=== PATIENT | female | born 1955 | race American Indian/Alaskan Native ===

== ENCOUNTER 2016-06-28 07:26 | Emergency (ER) | payer BC ==
[2016-06-28 07:37] VITALS: TEMP 98.8
[2016-06-28] MEDS ORDERED: Sodium Chloride 0.9% 1,000 ML IV ONE (07:52)
[2016-06-28] MEDS ORDERED: Sodium Chloride 0.9% 1,000 ML ONE (08:02)
[2016-06-28 08:26] LABS: BASO # 0.1 K/uL (0.0-0.2); BASO % 0.6 % (0.0-2.0); EOS % 0.4 % (0.0-4.0); HEMATOCRIT 39.9 % (34.0-47.0); LYMPH # 3.4 K/uL (1.0-4.3); LYMPH % 36.4 % (20.0-40.0); MEAN CELL VOLUME 87.5 fL (81.0-99.0); MEAN CORPUSCULAR HEMOGLOBIN 28.8 pg (27.0-31.0); MEAN CORPUSCULAR HGB CONC 32.9 g/dL (33.0-37.0); MEAN PLATELET VOLUME 7.2 fL (7.2-11.7); MONO # 1.1 K/uL (0.0-0.8); MONO % 12.2 % (0.0-10.0); RED CELL DISTRIBUTION WIDTH 14.2 % (11.5-14.5); WHITE BLOOD COUNT 9.4 K/uL (4.8-10.8)
[2016-06-28 08:55] LABS: CHLORIDE 105 mmol/L (98-107)
[2016-06-28 08:56] LABS: POTASSIUM 3.9 mmol/L (3.6-5.2); SODIUM 140 mmol/L (132-148)
[2016-06-28 08:58] LABS: ALB/GLOB RATIO 1.3 (1.0-2.1); AST/SGOT 22 U/L (14-36); BILIRUBIN,TOTAL 0.5 mg/dL (0.2-1.3); BLOOD UREA NITROGEN 11 mg/dL (7-17); CARBON DIOXIDE 24 mmol/L (22-30); GFR AFRICAN-AMERICAN > 60; TOTAL PROTEIN 7.4 g/dL (6.3-8.3)
--- NOTE | 2016-06-28 08:58 | C.PDOC ---
History Of Present Illness 60-year-old female, PMHx includes Hypertension and Diabetes, presents to the emergency department with complaints of nausea, w/ non-bloody/non-bilious vomiting and watery/non-bloody diarrhea that is associated with a cough and generalized weakness for the past three days. Patient notes associated decreased PO intake. No known fevers. Patient denies chills, chest pain, dizziness, or any other associated symptoms. No other complaints at this time. Time Seen by Provider: 06/28/16 07:46 Chief Complaint (Nursing): Flu-like Symptoms History Per: Patient History/Exam Limitations: no limitations Onset/Duration Of Symptoms: Days Current Symptoms Are (Timing): Still Present Past Medical History Reviewed: Historical Data, Nursing Documentation, Vital Signs Vital Signs: Last Vital Signs Temp 98.8 F 06/28/16 09:13 Pulse 74 06/28/16 09:13 Resp 20 06/28/16 09:13 BP 128/77 06/28/16 09:13 Pulse Ox 99 06/28/16 09:13 - Medical History PMH: Diabetes (Non-compliant with medication), HTN, Kidney Stones Denies: Chronic Kidney Disease - [facility] Procedures FLUOROSCOPY OF LEFT HEART USING LOW OSMOLAR CONTRAST (02/02/15) FLUOROSCOPY OF SINGLE CORONARY ARTERY USING L OSM CONTRAST (02/02/15) INSERT INDWELLING CATH (09/12/12) MEASURE OF CARDIAC SAMPL & PRESSURE, L HEART, PERC APPROACH (02/02/15) Family History: States: Unknown Family Hx - Social History Hx Tobacco Use: No Hx Alcohol Use: No Hx Substance Use: No - Immunization History Hx Tetanus Toxoid Vaccination: No Hx Influenza Vaccination: No Hx Pneumococcal Vaccination: No Review Of Systems Except As Marked, All Systems Reviewed And Found Negative. Constitutional: Negative for: Fever, Chills Cardiovascular: Negative for: Chest Pain, Palpitations Respiratory: Positive for: Cough. Negative for: Shortness of Breath, Sputum Gastrointestinal: Positive for: Nausea, Vomiting, Diarrhea Musculoskeletal: Positive for: Back Pain Skin: Negative for: Rash Physical Exam - Physical Exam Appears: Non-toxic, No Acute Distress Skin: Warm, Dry, No Rash Head: Atraumatic, Normacephalic Eye(s): bilateral: Normal Inspection, EOMI Nose: Normal Oral Mucosa: Moist Lips: Normal Appearing Neck: Normal ROM Cardiovascular: Rhythm Regular Respiratory: Normal Breath Sounds, No Accessory Muscle Use Gastrointestinal/Abdominal: Soft, No Tenderness Extremity: Normal ROM Neurological/Psych: Oriented x3, Normal Speech ED Course And Treatment - Laboratory Results Result Diagrams: 06/28/16 08:22 06/28/16 08:44 Lab Interpretation: No Acute Changes O2 Sat by Pulse Oximetry: 96 (room air) Pulse Ox Interpretation: Normal Medical Decision Making Medical Decision Making: Impression Generalized weakness, nausea/vomiting. Plan: * CMP * CBC * IVF, Toradol, Zofran * Influenza AB * Urinalysis * Reassess and Disposition progress: Labs reviewed and unremarkable. Patient remained afebrile and in no acute distress. Upon reevaluation patient reports feeling better. She was able to tolerate po. Advise follow up with PMD. Disposition - Disposition Disposition: HOME/ ROUTINE Disposition Time: 10:15 Condition: IMPROVED Additional Instructions: Give fluids to prevent dehydration. Take Zofran as prescribed. Try low-fat diet with increase in fluids such as sport drink, gelatin. Try soup, rice, bread, crackers, cereal, bananas to help with diarrhea. Avoid high sugar foods or drinks (soda and juice), fatty foods. Prescriptions: Pantoprazole Sodium [Protonix] 20 mg PO DAILY #20 ect Ondansetron ODT [Zofran ODT] 1 odt PO BID PRN #6 odt PRN Reason: Nausea/Vomiting Instructions: Gastroenteritis (DC) - POA Present On Arrival: None - Clinical Impression Clinical Impression: Influenza-like illness, Gastroenteritis - Scribe Statement The provider has reviewed the documentation as recorded by the Raghu Shaffer All medical record entries made by the Raghu were at my direction and personally dictated by me. I have reviewed the chart and agree that the record accurately reflects my personal performance of the history, physical exam, medical decision making, and the department course for this patient. I have also personally directed, reviewed, and agree with the discharge instructions and disposition.
[2016-06-28 08:59] LABS: ALKALINE PHOSPHATASE 92 U/L (38-126); ALT/SGPT 25 U/L (9-52); CALCIUM 8.6 mg/dl (8.6-10.4); GLUCOSE,RANDOM 95 mg/dL (65-105)
[2016-06-28 09:13] VITALS: BP 128/77; PULSE 74; RESP 20
[2016-06-28 09:46] LABS: RBC URINE 2 /hpf (0-3); URINE BACTERIA RARE (<OCC); URINE BILIRUBIN NEGATIVE (NEGATIVE); URINE BLOOD NEGATIVE (NEGATIVE); URINE COLOR Yellow (YELLOW); URINE GLUCOSE (UA) NORMAL (Normal); URINE KETONE 1+ mg/dL (NEGATIVE); URINE LEUKOCYTE ESTERASE NEG Leu/uL (Negative); URINE PROTEIN NEGATIVE (NEGATIVE); WBC URINE 1 /hpf (0-5)
[2016-06-28 13:11] VITALS: O2SAT 96
== END 2016-06-28 10:30 | disposition home or self-care (01) ==
LOC: C.ER 07:26
DX: J11.2 Influenza due to unidentified influenza virus with gastrointestinal manifestations (principal)
CPT/HCPCS: 80053; 81001; 85025; 87804; 96361; 96374; 96375; 99284; J1885; J2405; J7040

== ENCOUNTER 2016-08-28 02:06 | Emergency (ER) | payer BC ==
[2016-08-28] MEDS ORDERED: Sodium Chloride 0.9% 1,000 ML IV ONE (02:26)
--- NOTE | 2016-08-28 02:26 | C.PDOC ---
Time Seen by Provider: 08/28/16 02:25 Chief Complaint (Nursing): Back Pain Past Medical History Vital Signs: Last Vital Signs Temp 97.6 F 08/28/16 02:14 Pulse 88 08/28/16 02:14 Resp 22 08/28/16 02:14 BP 136/47 L 08/28/16 02:14 Pulse Ox 100 08/28/16 02:14 - Medical History PMH: Diabetes (Non-compliant with medication), HTN, Kidney Stones Denies: Chronic Kidney Disease - [facility] Procedures FLUOROSCOPY OF LEFT HEART USING LOW OSMOLAR CONTRAST (02/02/15) FLUOROSCOPY OF SINGLE CORONARY ARTERY USING L OSM CONTRAST (02/02/15) INSERT INDWELLING CATH (09/12/12) MEASURE OF CARDIAC SAMPL & PRESSURE, L HEART, PERC APPROACH (02/02/15) Family History: States: Unknown Family Hx - Social History Hx Tobacco Use: No Hx Alcohol Use: No Hx Substance Use: No - Immunization History Hx Tetanus Toxoid Vaccination: No Hx Influenza Vaccination: No Hx Pneumococcal Vaccination: No ED Course And Treatment O2 Sat by Pulse Oximetry: 100 Disposition Counseled Patient/Family Regarding: Studies Performed, Diagnosis - Disposition Disposition Time: 02:26
[2016-08-28] MEDS ORDERED: Morphine 4 MG/ML VIAL IV STA (02:29)
--- NOTE | 2016-08-28 02:33 | C.PDOC ---
History Of Present Illness Pt presents with llq pain , which started a few hours ago. Sharp stabbing pain , occasionally radiating to the back. Has a history of kidney stones. Some nausea, no vomiting Time Seen by Provider: 08/28/16 02:25 Chief Complaint (Nursing): Back Pain History Per: Patient History/Exam Limitations: no limitations Onset/Duration Of Symptoms: Hrs Current Symptoms Are (Timing): Still Present Context: Other Severity: Severe Pain Scale Rating Of: 7 Location Of Pain/Discomfort: LLQ Radiation Of Pain To:: Back Quality Of Discomfort: Sharp, Cramping, Stabbing Associated Symptoms: denies: Fever, Chills Exacerbating Factors: denies: Cough Alleviating Factors: None Last Bowel Movement: Today Recent travel outside of the [place]: No Additional History Per: Patient Abnormal Vaginal Bleeding: No Past Medical History Reviewed: Historical Data, Nursing Documentation, Vital Signs Vital Signs: Last Vital Signs Temp 97.6 F 08/28/16 02:14 Pulse 88 08/28/16 02:14 Resp 22 08/28/16 02:14 BP 136/47 L 08/28/16 02:14 Pulse Ox 100 08/28/16 02:33 - Medical History PMH: Diabetes (Non-compliant with medication), HTN, Kidney Stones Denies: Chronic Kidney Disease - [facility] Procedures FLUOROSCOPY OF LEFT HEART USING LOW OSMOLAR CONTRAST (02/02/15) FLUOROSCOPY OF SINGLE CORONARY ARTERY USING L OSM CONTRAST (02/02/15) INSERT INDWELLING CATH (09/12/12) MEASURE OF CARDIAC SAMPL & PRESSURE, L HEART, PERC APPROACH (02/02/15) Family History: States: No Known Family Hx - Social History Hx Tobacco Use: No Hx Alcohol Use: No Hx Substance Use: No - Immunization History Hx Tetanus Toxoid Vaccination: No Hx Influenza Vaccination: No Hx Pneumococcal Vaccination: No Review Of Systems Constitutional: Negative for: Fever, Chills Eyes: Negative for: Vision Change ENT: Negative for: Throat Pain Cardiovascular: Negative for: Chest Pain Respiratory: Negative for: Shortness of Breath Gastrointestinal: Positive for: Abdominal Pain. Negative for: Nausea Genitourinary: Negative for: Dysuria Musculoskeletal: Positive for: Back Pain Skin: Negative for: Rash, Lesions, Jaundice, Bruising Neurological: Negative for: Weakness Psych: Negative for: Anxiety Physical Exam - Physical Exam Appears: Non-toxic Skin: Warm, Dry Head: Normacephalic Oral Mucosa: Moist Neck: Supple Chest: Symmetrical Cardiovascular: Rhythm Regular Respiratory: No Rales, No Rhonchi, No Wheezing Gastrointestinal/Abdominal: Soft, Tenderness (llq), Distention, No Guarding, No Rebound Back: CVA Tenderness (left) Extremity: Normal ROM Extremity: Bilateral: Normal Color And Temperature Neurological/Psych: Oriented x3, Normal Speech, Normal Cognition Gait: Steady ED Course And Treatment - Laboratory Results Result Diagrams: 08/28/16 02:36 08/28/16 02:36 O2 Sat by Pulse Oximetry: 100 Pulse Ox Interpretation: Normal Reevaluation Time: 06:30 Reassessment Condition: Improved Disposition Counseled Patient/Family Regarding: Studies Performed, Diagnosis, Need For Followup, Rx Given - Disposition Referrals: Naila Tom MD [Staff Provider] - Disposition: HOME/ ROUTINE Disposition Time: 02:30 Condition: FAIR Prescriptions: traMADol [Ultram] 50 mg PO TID PRN #12 tab PRN Reason: Pain, Severe (8-10) Instructions: Renal Colic (ED) - Clinical Impression Clinical Impression: Renal colic on left side
[2016-08-28] MEDS ORDERED: Sodium Chloride 0.9% 1,000 ML ONE (02:35)
[2016-08-28 02:38] LABS: BASO # 0.2 K/uL (0.0-0.2); BASO % 1.7 % (0.0-2.0); EOS # 0.1 K/uL (0.0-0.7); HEMATOCRIT 37.7 % (34.0-47.0); LYMPH # 8.5 K/uL (1.0-4.3); LYMPH % 62.6 % (20.0-40.0); MEAN CORPUSCULAR HEMOGLOBIN 28.7 pg (27.0-31.0); MEAN CORPUSCULAR HGB CONC 32.3 g/dL (33.0-37.0); MEAN PLATELET VOLUME 7.3 fL (7.2-11.7); MONO # 1.3 K/uL (0.0-0.8); MONO % 9.7 % (0.0-10.0); RED CELL DISTRIBUTION WIDTH 14.6 % (11.5-14.5); WHITE BLOOD COUNT 13.5 K/uL (4.8-10.8)
[2016-08-28 02:47] LABS: CHLORIDE 102 mmol/L (98-107); POTASSIUM 3.6 mmol/L (3.6-5.2); SODIUM 141 mmol/L (132-148)
[2016-08-28 02:49] LABS: ALB/GLOB RATIO 1.5 (1.0-2.1); AST/SGOT 22 U/L (14-36); BILIRUBIN,TOTAL 0.5 mg/dL (0.2-1.3); CARBON DIOXIDE 23 mmol/L (22-30); GFR AFRICAN-AMERICAN > 60; TOTAL PROTEIN 7.6 g/dL (6.3-8.3)
[2016-08-28 02:50] LABS: ALKALINE PHOSPHATASE 102 U/L (38-126); ALT/SGPT 16 U/L (9-52); BLOOD UREA NITROGEN 13 mg/dL (7-17); CALCIUM 9.3 mg/dl (8.6-10.4); GLUCOSE,RANDOM 109 mg/dL (65-105)
[2016-08-28 04:24] LABS: RBC URINE 8 /hpf (0-3); URINE BACTERIA RARE (<OCC); URINE BILIRUBIN NEGATIVE (NEGATIVE); URINE BLOOD 1+ (NEGATIVE); URINE COLOR Yellow (YELLOW); URINE GLUCOSE (UA) NORMAL (Normal); URINE KETONE NEGATIVE (NEGATIVE); URINE LEUKOCYTE ESTERASE NEG Leu/uL (Negative); URINE PROTEIN NEGATIVE (NEGATIVE); URINE UROBILINOGEN NORMAL mg/dL (0.2-1.0); WBC URINE 2 /hpf (0-5)
[2016-08-28] MEDS ORDERED: Iodixanol 320 MG/ML 100 ML BOTTLE IV ONE (04:51)
[2016-08-28 07:02] VITALS: BP 134/60; PULSE 76; RESP 20; TEMP 98; O2SAT 98
--- NOTE | 2016-08-28 11:59 | CT ---
PROCEDURE: CT Abdomen and Pelvis with contrast HISTORY: left flank pain COMPARISON: CT of the abdomen and pelvis without oral or IV contrast performed 08/26/15 TECHNIQUE: Contrast dose: 100 mL Visipaque Radiation dose: Total exam DLP = 1198.33 mGy-cm. This CT exam was performed using one or more of the following dose reduction techniques: Automated exposure control, adjustment of the mA and/or kV according to patient size, and/or use of iterative reconstruction technique. FINDINGS: LOWER THORAX: Bibasilar atelectasis. No visible pleural effusion or pneumothorax. Small hiatal hernia. LIVER: Too small to characterize 5 mm hypodensity at the hepatic dome; statistically likely cyst or hemangioma. Hypoattenuation of the liver compatible with hepatic steatosis. GALLBLADDER AND BILE DUCTS: Unremarkable. PANCREAS: Unremarkable. SPLEEN: Unremarkable. ADRENALS: Unremarkable. KIDNEYS AND URETERS: The kidneys enhance symmetrically. 2 mm left ureteral calculus (series 3, image 91), with mild hydroureter/ hydronephrosis. Mild left perinephric fluid. The right kidney appears unremarkable without hydronephrosis or obstructing calculus. VASCULATURE: Atherosclerotic calcifications. No aortic aneurysm. BOWEL: Postsurgical gastric changes. Lack of oral contrast limits evaluation for bowel pathology. Bowel loops appear within normal limits of caliber without evidence of obstruction. APPENDIX: No secondary signs of acute appendicitis. PERITONEUM: No significant free fluid. No definite free air. LYMPH NODES: No bulky adenopathy identified. BLADDER: 2 mm punctate calculus appears within the urinary bladder, likely related to recently passed stone. REPRODUCTIVE: Uterus is absent consistent with hysterectomy. BONES: Degenerative changes. OTHER FINDINGS: Small fat containing umbilical hernia. IMPRESSION: 2 mm left ureteral calculus, with mild hydroureter/ hydronephrosis. Mild left perinephric fluid. 2 mm punctate calculus appears within the urinary bladder, likely related to recently passed stone. Too small to characterize 5 mm hypodensity at the hepatic dome; statistically likely cyst or hemangioma. Hepatic steatosis. Additional incidental findings as above. Preliminary impression was provided by virtual radi[employer].
== END 2016-08-28 07:00 | disposition home or self-care (01) ==
LOC: C.ER 02:06
DX: N13.2 Hydronephrosis with renal and ureteral calculous obstruction (principal)
CPT/HCPCS: 74177; 80053; 81001; 83690; 85025; 96374; 96375; 99283; J1885; J2270; J2405; J7040; Q9967

== ENCOUNTER 2016-11-03 06:04 | Emergency (ER) | payer BC ==
--- NOTE | 2016-11-03 06:22 | C.PDOC ---
History Of Present Illness 60 year old female with complaints of sore throat, nasal congestion, bilateral ear fullness and clogged sensation for 2 days. She also reports malaise, generalized headache, and subjective fever. She tried OTC cold medicine and lozenges with little relief. She reports painful swallowing today. Time Seen by Provider: 11/03/16 06:20 Chief Complaint (Nursing): ENT Problem History Per: Patient History/Exam Limitations: no limitations Onset/Duration Of Symptoms: Days (2) Current Symptoms Are (Timing): Still Present Location Of Pain: Throat, Sinus/es, Headache Sick Contacts (Context): None Associated Symptoms: Fever, Sore Throat, Nasal Congestion Ear Symptoms: Bilateral: Ear Fullness Past Medical History Reviewed: Historical Data, Nursing Documentation, Vital Signs Vital Signs: Last Vital Signs Temp Pulse 87 11/03/16 06:12 Resp 18 11/03/16 06:12 BP 131/67 11/03/16 06:12 Pulse Ox 97 11/03/16 06:28 - Medical History PMH: Diabetes (Non-compliant with medication), HTN, Kidney Stones - [facility] Procedures FLUOROSCOPY OF LEFT HEART USING LOW OSMOLAR CONTRAST (02/02/15) FLUOROSCOPY OF SINGLE CORONARY ARTERY USING L OSM CONTRAST (02/02/15) INSERT INDWELLING CATH (09/12/12) MEASURE OF CARDIAC SAMPL & PRESSURE, L HEART, PERC APPROACH (02/02/15) Family History: States: Unknown Family Hx - Social History Hx Tobacco Use: No Hx Alcohol Use: No Hx Substance Use: No - Immunization History Hx Tetanus Toxoid Vaccination: No Hx Influenza Vaccination: No Hx Pneumococcal Vaccination: No Review Of Systems Constitutional: Positive for: Fever, Malaise Eyes: Negative for: Pain, Vision Change ENT: Positive for: Ear Pain, Nose Congestion Cardiovascular: Negative for: Palpitations Respiratory: Negative for: Cough, Shortness of Breath Gastrointestinal: Negative for: Vomiting, Abdominal Pain, Diarrhea Genitourinary: Negative for: Dysuria Skin: Negative for: Rash Neurological: Positive for: Headache. Negative for: Weakness, Numbness, Dizziness Physical Exam - Physical Exam Appears: Non-toxic, No Acute Distress Skin: Warm, Dry, No Diaphoretic, No Pale, No Rash Head: Atraumatic, Normacephalic Eye(s): bilateral: Normal Inspection, PERRL, EOMI Ear(s): Bilateral: Normal (no erythema) Nose: No Discharge, Other (nasal congestion) Oral Mucosa: Moist Tongue: Normal Appearing Lips: Normal Appearing Teeth: Normal Dentition Throat: Erythema (mild), No Exudate, No Drooling, No Mass Neck: Normal ROM Lymphatic: Normal Exam, No Adenopathy Chest: Symmetrical Cardiovascular: Rhythm Regular, No Murmur Respiratory: Normal Breath Sounds, No Stridor, No Wheezing Extremity: Bilateral: Atraumatic, Normal ROM Neurological/Psych: Oriented x3, Normal Speech Gait: Steady ED Course And Treatment O2 Sat by Pulse Oximetry: 97 Medical Decision Making Medical Decision Makin60 year old female with complaints of sore throat, nasal congestion, bilateral ear fullness and clogged sensation. No signs of acute OM or strep on exam. Symptoms likely related to sinus infection. Patient states she has tried OTC medications without relief. Will treat with Amoxicillin. Recommend decongestant and will discharge with Rx. Instruct to follow up with PCP. Disposition Counseled Patient/Family Regarding: Diagnosis, Need For Followup, Rx Given - Disposition Disposition: HOME/ ROUTINE Disposition Time: 06:30 Condition: STABLE Additional Instructions: Take Tylenol or Motrin alternating every 4-6 hours for Fever 100.4F or higher. Rest and drink plenty of fluids. May use cool mist humidifier or vaporizer in room. Try taking over the counter antihistamine (Claritin, Yanna, Zyrtec), Decongestant or Cough medicine (Mucinex) as needed every 6-8 hours. Try lozenges to help soothe throat pain. Follow up with your primary medical doctor or clinic in 1 week for further evaluation. Prescriptions: Amoxicillin [Amoxil 500 mg Cap] 2 tab PO BID #28 cap D-Methorphan/PE/Acetaminophen [Mucinex Fast-Max Cold-Sinus Cp] 1 each PO Q8 #24 capsule Instructions: Sinusitis (ED) Forms: [employer] (Austrian) - POA Present On Arrival: None - Clinical Impression Clinical Impression: Sinusitis - PA / [employer] / Resident Statement MD/DO has reviewed & agrees with the documentation as recorded.
[2016-11-03] MEDS ORDERED: Amoxicillin-Clav 500-125 mg Tab PO ONE (06:36)
[2016-11-03 06:42] VITALS: TEMP 98
[2016-11-03 06:52] VITALS: BP 129/67; PULSE 86; RESP 16; O2SAT 100
== END 2016-11-03 06:51 | disposition home or self-care (01) ==
LOC: C.ER 06:04
DX: J32.9 Chronic sinusitis, unspecified (principal)

== ENCOUNTER 2017-07-20 17:54 | Observation (INO) | payer BC ==
[2017-07-20 18:51] LABS: BASO # 0.1 K/uL (0.0-0.2); BASO % 0.8 % (0.0-2.0); EOS # 0.1 K/uL (0.0-0.7); HEMOGLOBIN 12.6 g/dL (11.0-16.0); LYMPH # 4.8 K/uL (1.0-4.3); LYMPH % 56.8 % (20.0-40.0); MEAN CELL VOLUME 88.1 fL (81.0-99.0); MEAN CORPUSCULAR HEMOGLOBIN 29.5 pg (27.0-31.0); MEAN CORPUSCULAR HGB CONC 33.5 g/dL (33.0-37.0); MEAN PLATELET VOLUME 7.4 fL (7.2-11.7); MONO # 0.8 K/uL (0.0-0.8); MONO % 9.8 % (0.0-10.0); NEUT # 2.7 K/uL (1.8-7.0); NEUT % 31.6 % (50.0-75.0); NRBC % 0.1 % (0.0-2.0); RBC 4.26 Mil/uL (3.80-5.20); RED CELL DISTRIBUTION WIDTH 14.3 % (11.5-14.5); WHITE BLOOD COUNT 8.5 K/uL (4.8-10.8)
[2017-07-20 19:06] LABS: CALCIUM 9.3 mg/dl (8.6-10.4); GFR AFRICAN-AMERICAN > 60; GFR NON-AFRICAN AMERICAN > 60
[2017-07-20 19:20] LABS: ALB/GLOB RATIO 1.1 (1.0-2.1); ALBUMIN 4.3 g/dL (3.5-5.0); ALT/SGPT < 6 U/L (9-52); AST/SGOT 36 U/L (14-36); BLOOD UREA NITROGEN 15 mg/dL (7-17)
--- NOTE | 2017-07-20 21:06 | C.PDOC ---
History Of Present Illness 61yo female, with history of hypertension, diabetes and high cholesterol, presents to the ED with complaints of an episode of midsternal chest pain today. She states the pain subsided when she sat down to rest. Patient denies any associated fever, chills, cough, shortness of breath. She also denies any recent travels or known sick contacts. Time Seen by Provider: 07/20/17 18:20 Chief Complaint (Nursing): Chest Pain History Per: Patient History/Exam Limitations: no limitations Onset/Duration Of Symptoms: Days Current Symptoms Are (Timing): Gone Quality: "Pain" Past Medical History Reviewed: Historical Data, Nursing Documentation, Vital Signs Vital Signs: Last Vital Signs Temp 97.9 F 07/20/17 22:07 Pulse 64 07/20/17 22:07 Resp 20 07/20/17 22:07 BP 128/66 07/20/17 22:07 Pulse Ox 100 07/20/17 22:07 - Medical History PMH: Diabetes (Non-compliant with medication), HTN, Hypercholesterolemia, Kidney Stones Denies: Chronic Kidney Disease Surgical History: No Surg Hx - [facility] Procedures FLUOROSCOPY OF LEFT HEART USING LOW OSMOLAR CONTRAST (02/02/15) FLUOROSCOPY OF SINGLE CORONARY ARTERY USING L OSM CONTRAST (02/02/15) INSERT INDWELLING CATH (09/12/12) MEASURE OF CARDIAC SAMPL & PRESSURE, L HEART, PERC APPROACH (02/02/15) Family History: States: Unknown Family Hx - Social History Hx Tobacco Use: No Hx Alcohol Use: No Hx Substance Use: No - Immunization History Hx Tetanus Toxoid Vaccination: No Hx Influenza Vaccination: No Hx Pneumococcal Vaccination: No Review Of Systems Except As Marked, All Systems Reviewed And Found Negative. Constitutional: Negative for: Fever, Chills Cardiovascular: Positive for: Chest Pain Respiratory: Negative for: Cough, Shortness of Breath Physical Exam - Physical Exam Appears: Non-toxic, No Acute Distress Skin: Normal Color, Warm, Dry Head: Atraumatic, Normacephalic Eye(s): bilateral: Normal Inspection, PERRL Neck: Normal ROM, Supple Chest: Symmetrical, No Tenderness Cardiovascular: Rhythm Regular Respiratory: Normal Breath Sounds, No Wheezing Gastrointestinal/Abdominal: Normal Exam, Soft, No Tenderness Back: Normal Inspection Extremity: Normal ROM, No Deformity Neurological/Psych: Oriented x3 ED Course And Treatment - Laboratory Results Result Diagrams: 07/20/17 18:46 07/20/17 18:46 ECG: Interpreted By Me, Viewed By Me ECG Rhythm: Sinus Bradycardia Rate From EC O2 Sat by Pulse Oximetry: 99 (RA) Pulse Ox Interpretation: Normal Medical Decision Making Medical Decision Making: Impression: Chest pain Plan: -- Labs -- EKG -- CXR -- Aspirin 325 mg PO Time: [address] Tom and patient to be admitted under her service. Disposition - Disposition Disposition: HOSPITALIZED Disposition Time: 19:15 Condition: STABLE - Clinical Impression Clinical Impression: Chest pain - Scribe Statement The provider has reviewed the documentation as recorded by the Scribe (Whitney Ross) Provider Attestation: All medical record entries made by the Scribe were at my direction and personally dictated by me. I have reviewed the chart and agree that the record accurately reflects my personal performance of the history, physical exam, medical decision making, and the department course for this patient. I have also personally directed, reviewed, and agree with the discharge instructions and disposition.
[2017-07-21 07:02] LABS: BASO % 0.5 % (0.0-2.0); EOS # 0.1 K/uL (0.0-0.7); EOS % 1.4 % (0.0-4.0); HEMOGLOBIN 12.2 g/dL (11.0-16.0); LYMPH # 4.1 K/uL (1.0-4.3); LYMPH % 60.7 % (20.0-40.0); MEAN CELL VOLUME 88.2 fL (81.0-99.0); MEAN CORPUSCULAR HEMOGLOBIN 29.1 pg (27.0-31.0); MEAN PLATELET VOLUME 7.3 fL (7.2-11.7); MONO # 0.7 K/uL (0.0-0.8); MONO % 10.2 % (0.0-10.0); NEUT # 1.8 K/uL (1.8-7.0); NEUT % 27.2 % (50.0-75.0); NRBC % 0.1 % (0.0-2.0); RBC 4.19 Mil/uL (3.80-5.20); RED CELL DISTRIBUTION WIDTH 14.2 % (11.5-14.5); WHITE BLOOD COUNT 6.8 K/uL (4.8-10.8)
[2017-07-21] MEDS: (Novolog) Insulin Aspart, Recombinant 100 u/ml 10 ml vial SC SCH ×2 (07:39→11:27)
--- NOTE | 2017-07-21 08:22 | RAD ---
HISTORY: chest pain COMPARISON: Chest x-ray 02/01/2015 TECHNIQUE: Chest one view . FINDINGS: LUNGS: No focal consolidation is seen. PLEURA: No pleural effusion is identified. CARDIOVASCULAR: Heart size is within normal limits. OSSEOUS STRUCTURES: Visualized osseous structures are unremarkable. VISUALIZED UPPER ABDOMEN: Unremarkable. OTHER FINDINGS: None. IMPRESSION: No acute cardiopulmonary process seen.
[2017-07-21 08:33] VITALS: TEMP 97.5; O2SAT 98
[2017-07-21 09:03] LABS: ALB/GLOB RATIO 1.2 (1.0-2.1); ALBUMIN 3.7 g/dL (3.5-5.0); ALT/SGPT 14 U/L (9-52); AST/SGOT 32 U/L (14-36); BLOOD UREA NITROGEN 14 mg/dL (7-17); CALCIUM 9.2 mg/dl (8.6-10.4); GFR AFRICAN-AMERICAN > 60; GFR NON-AFRICAN AMERICAN > 60
[2017-07-21 09:15] LABS: CK-MB < 0.22 ng/mL (0.0-3.38)
[2017-07-21 09:40] VITALS: BP 132/70; RESP 16
[2017-07-21] MEDS ORDERED: Enoxaparin 40 mg Syringe SC SCH (10:00)
--- NOTE | 2017-07-21 10:24 | CP.PCM.HP ---
History of Present Illness - History of Present Illness History of Present Illness: pt came in for retrosternal chest pain resolved with rest Present on Admission - Present on Admission Any Indicators Present on Admission: No Review of Systems - Review of Systems Systems not reviewed;Unavailable: Acuity of Condition - Constitutional Constitutional: As Per HPI - EENT Eyes: As Per HPI Ears: As Per HPI - Breasts Breasts: As Per HPI - Cardiovascular Cardiovascular: As Per HPI - Respiratory Respiratory: As Per HPI - Gastrointestinal Gastrointestinal: As Per HPI - Genitourinary Genitourinary: As Per HPI - Reproductive: Female Reproductive:Female: As Per HPI - Menstruation Menstruation: As Per HPI - Musculoskeletal Musculoskeletal: As Per HPI - Integumentary Integumentary: As Per HPI - Neurological Neurological: As Per HPI - Psychiatric Psychiatric: As Per HPI - Endocrine Endocrine: As Per HPI - Hematologic/Lymphatic Hematologic: As Per HPI Past Patient History - Infectious Disease Hx of Infectious Diseases: None - Past Medical History & Family History Past Medical History?: Yes - Past Social History Smoking Status: Never Smoked - CARDIAC Hx Hypercholesterolemia: Yes Hx Hypertension: Yes - PULMONARY Hx Respiratory Disorders: No - NEUROLOGICAL Hx Neurological Disorder: No - HEENT Hx HEENT Problems: Yes Other/Comment: uses eyeglasses - RENAL Hx Chronic Kidney Disease: No Hx Kidney Stones: Yes - ENDOCRINE/METABOLIC Hx Diabetes Mellitus Type 2: Yes - HEMATOLOGICAL/ONCOLOGICAL Hx Blood Disorders: No - INTEGUMENTARY Hx Dermatological Problems: No - MUSCULOSKELETAL/RHEUMATOLOGICAL Hx Musculoskeletal Disorders: No Hx Back Pain: Yes Hx Falls: No Other/Comment: "PROBLEM WITH LEFT HIP" - GASTROINTESTINAL Hx Gastroesophageal Reflux: Yes Other/Comment: s/p beritric surgery 2 ys ago - GENITOURINARY/GYNECOLOGICAL Hx Genitourinary Disorders: No - PSYCHIATRIC Hx Substance Use: No - SURGICAL HISTORY Hx Cardiac Catheterization: Yes Hx Hysterectomy: Yes Hx Orthopedic Surgery: Yes (LEFT KNEE) Other/Comment: HYSTERECTOMY. GASTRIC SLEEVE 2012 - ANESTHESIA Hx Anesthesia: Yes Hx Anesthesia Reactions: No Meds Allergies/Adverse Reactions: Allergies Allergy/AdvReac Type Severity Reaction Status Date / Time No Known Allergies Allergy Verified 07/20/17 18:11 Physical Exam - Constitutional Appears: Well - Head Exam Head Exam: ATRAUMATIC - Eye Exam Eye Exam: Normal appearance Pupil Exam: PERRL - ENT Exam ENT Exam: Mucous Membranes Moist - Neck Exam Neck exam: Positive for: Full Rom - Respiratory Exam Respiratory Exam: Clear to Auscultation Bilateral - Cardiovascular Exam Cardiovascular Exam: REGULAR RHYTHM - GI/Abdominal Exam GI & Abdominal Exam: Normal Bowel Sounds - Rectal Exam Rectal Exam: NORMAL INSPECTION - Exam Exam: NORMAL INSPECTION - Extremities Exam Extremities exam: Positive for: normal inspection - Back Exam Back exam: NORMAL INSPECTION - Neurological Exam Neurological exam: Oriented x3 - Psychiatric Exam Psychiatric exam: Normal Mood - Skin Skin Exam: Normal Color Results - Vital Signs Recent Vital Signs: Last Vital Signs Temp 97.5 F L 07/21/17 07:00 Pulse 72 07/21/17 09:38 Resp 16 07/21/17 09:38 BP 132/70 07/21/17 09:38 Pulse Ox 98 07/21/17 07:00 - Labs Result Diagrams: 07/21/17 06:47 07/21/17 06:47 Labs: Laboratory Results - last 24 hr 07/20/17 07/20/17 07/21/17 18:46 18:46 06:14 WBC 8.5 RBC 4.26 Hgb 12.6 Hct 37.5 MCV 88.1 MCH 29.5 MCHC 33.5 RDW 14.3 Plt Count 391 MPV 7.4 Neut % (Auto) 31.6 L Lymph % (Auto) 56.8 H Major % (Auto) 9.8 Eos % (Auto) 1.0 Baso % (Auto) 0.8 Neut # (Auto) 2.7 Lymph # (Auto) 4.8 H Major # (Auto) 0.8 Eos # (Auto) 0.1 Baso # (Auto) 0.1 Sodium 145 Potassium 5.6 H Chloride 107 Carbon Dioxide 27 Anion Gap 17 BUN 15 Creatinine 0.9 Est GFR ( Amer) > 60 Est GFR (Non-Af Amer) > 60 POC Glucose (mg/dL) 79 Random Glucose 84 Calcium 9.3 Total Bilirubin 1.2 AST 36 ALT < 6 L D Alkaline Phosphatase 80 Total Creatine Kinase CK-MB (Mass) Troponin I < 0.0120 Total Protein 8.2 Albumin 4.3 Globulin 3.9 Albumin/Globulin Ratio 1.1 07/21/17 07/21/17 06:47 06:47 WBC 6.8 RBC 4.19 Hgb 12.2 Hct 37.0 MCV 88.2 MCH 29.1 MCHC 33.0 RDW 14.2 Plt Count 346 MPV 7.3 Neut % (Auto) 27.2 L Lymph % (Auto) 60.7 H Major % (Auto) 10.2 H Eos % (Auto) 1.4 Baso % (Auto) 0.5 Neut # (Auto) 1.8 Lymph # (Auto) 4.1 Major # (Auto) 0.7 Eos # (Auto) 0.1 Baso # (Auto) 0.0 Sodium 144 Potassium 3.8 Chloride 109 H Carbon Dioxide 22 Anion Gap 18 BUN 14 Creatinine 0.8 Est GFR ( Amer) > 60 Est GFR (Non-Af Amer) > 60 POC Glucose (mg/dL) Random Glucose 87 Calcium 9.2 Total Bilirubin 0.4 AST 32 ALT 14 Alkaline Phosphatase 79 Total Creatine Kinase 87 CK-MB (Mass) < 0.22 Troponin I < 0.0120 Total Protein 6.9 Albumin 3.7 Globulin 3.2 Albumin/Globulin Ratio 1.2 Assessment & Plan - Assessment and Plan (Free Text) Assessment: ac chest pain non spescific enzyms negative but ekg canot r/o ant mi Plan: ekg echo lab and await cardiology evaluation the d/c - Date & Time Date: 07/21/17 Time: 10:28
--- NOTE | 2017-07-21 10:34 | CP.PCM.CON ---
History of Present Illness - History of Present Illness History of Present Illness: 61yo female, with history of hypertension, diabetes and high cholesterol, presents to the ED with complaints of an episode of midsternal chest pain today. She states the pain subsided when she sat down to rest. Patient denies any associated fever, chills, cough, shortness of breath. She also denies any recent travels or known sick contacts. CP is burning, non exertional; no associated diaphoresis, N/V, palpitation, dizziness or syncope. PMHX: HTN chronic stable, hypothyroidism, DM chronic stable Past Patient History - Infectious Disease Hx of Infectious Diseases: None - Past Medical History & Family History Past Medical History?: Yes - Past Social History Smoking Status: Never Smoked - CARDIAC Hx Hypercholesterolemia: Yes Hx Hypertension: Yes - PULMONARY Hx Respiratory Disorders: No - NEUROLOGICAL Hx Neurological Disorder: No - HEENT Hx HEENT Problems: Yes Other/Comment: uses eyeglasses - RENAL Hx Chronic Kidney Disease: No Hx Kidney Stones: Yes - ENDOCRINE/METABOLIC Hx Diabetes Mellitus Type 2: Yes - HEMATOLOGICAL/ONCOLOGICAL Hx Blood Disorders: No - INTEGUMENTARY Hx Dermatological Problems: No - MUSCULOSKELETAL/RHEUMATOLOGICAL Hx Musculoskeletal Disorders: No Hx Back Pain: Yes Hx Falls: No Other/Comment: "PROBLEM WITH LEFT HIP" - GASTROINTESTINAL Hx Gastroesophageal Reflux: Yes Other/Comment: s/p beritric surgery 2 ys ago - GENITOURINARY/GYNECOLOGICAL Hx Genitourinary Disorders: No - PSYCHIATRIC Hx Substance Use: No - SURGICAL HISTORY Hx Cardiac Catheterization: Yes Hx Hysterectomy: Yes Hx Orthopedic Surgery: Yes (LEFT KNEE) Other/Comment: HYSTERECTOMY. GASTRIC SLEEVE 2012 - ANESTHESIA Hx Anesthesia: Yes Hx Anesthesia Reactions: No Meds Allergies/Adverse Reactions: Allergies Allergy/AdvReac Type Severity Reaction Status Date / Time No Known Allergies Allergy Verified 07/20/17 18:11 - Medications Medications: Current Medications Amlodipine Besylate (Norvasc) 5 mg PO PCS [facility] Aspirin (Aspirin Chewable) 81 mg PO DAILY ON LICENSE OF [facility] Last Admin: 07/21/17 09:40 Dose: 81 mg Enoxaparin Sodium (Lovenox) 40 mg SC DAILY [facility] Last Admin: 07/21/17 09:43 Dose: 40 mg Hydrochlorothiazide (Microzide) 12.5 mg PO DAILY ON LICENSE OF [facility] Last Admin: 07/21/17 09:40 Dose: 12.5 mg Insulin Aspart (Novolog) 0 unit SC ACHS ON LICENSE OF [facility] PRN Reason: Protocol Last Admin: 07/21/17 07:39 Dose: Not Given Losartan Potassium (Cozaar) 100 mg PO DAILY ON LICENSE OF [facility] Last Admin: 07/21/17 09:40 Dose: 100 mg Metformin HCl (Glucophage) 500 mg PO ACD [facility] Physical Exam - Constitutional Appears: No Acute Distress - Head Exam Head Exam: ATRAUMATIC, NORMAL INSPECTION, NORMOCEPHALIC - Eye Exam Eye Exam: EOMI, Normal appearance, PERRL - ENT Exam ENT Exam: Mucous Membranes Moist, Normal Oropharynx - Neck Exam Neck exam: Positive for: Full Rom. Negative for: Tenderness, Thyromegaly - Respiratory Exam Respiratory Exam: Clear to Auscultation Bilateral, NORMAL BREATHING PATTERN. absent: Rhonchi, Wheezes - Cardiovascular Exam Cardiovascular Exam: REGULAR RHYTHM, RRR, +S1, +S2. absent: Gallop, Systolic Murmur - GI/Abdominal Exam GI & Abdominal Exam: Normal Bowel Sounds, Soft. absent: Organomegaly, Tenderness - Extremities Exam Extremities exam: Positive for: normal inspection, pedal pulses present. Negative for: calf tenderness, pedal edema, tenderness - Neurological Exam Neurological exam: Alert, CN II-XII Intact, Oriented x3 - Psychiatric Exam Psychiatric exam: Normal Affect, Normal Mood - Skin Skin Exam: Normal Color, Warm Results - Vital Signs Recent Vital Signs: Last Vital Signs Temp 97.5 F L 07/21/17 07:00 Pulse 72 07/21/17 09:38 Resp 16 07/21/17 09:38 BP 132/70 07/21/17 09:38 Pulse Ox 98 07/21/17 07:00 - Labs Result Diagrams: 07/21/17 06:47 07/21/17 06:47 Labs: Laboratory Results - last 24 hr 07/20/17 07/20/17 07/21/17 18:46 18:46 06:14 WBC 8.5 RBC 4.26 Hgb 12.6 Hct 37.5 MCV 88.1 MCH 29.5 MCHC 33.5 RDW 14.3 Plt Count 391 MPV 7.4 Neut % (Auto) 31.6 L Lymph % (Auto) 56.8 H Deuel % (Auto) 9.8 Eos % (Auto) 1.0 Baso % (Auto) 0.8 Neut # (Auto) 2.7 Lymph # (Auto) 4.8 H Deuel # (Auto) 0.8 Eos # (Auto) 0.1 Baso # (Auto) 0.1 Sodium 145 Potassium 5.6 H Chloride 107 Carbon Dioxide 27 Anion Gap 17 BUN 15 Creatinine 0.9 Est GFR ( Amer) > 60 Est GFR (Non-Af Amer) > 60 POC Glucose (mg/dL) 79 Random Glucose 84 Calcium 9.3 Total Bilirubin 1.2 AST 36 ALT < 6 L D Alkaline Phosphatase 80 Total Creatine Kinase CK-MB (Mass) Troponin I < 0.0120 Total Protein 8.2 Albumin 4.3 Globulin 3.9 Albumin/Globulin Ratio 1.1 07/21/17 07/21/17 06:47 06:47 WBC 6.8 RBC 4.19 Hgb 12.2 Hct 37.0 MCV 88.2 MCH 29.1 MCHC 33.0 RDW 14.2 Plt Count 346 MPV 7.3 Neut % (Auto) 27.2 L Lymph % (Auto) 60.7 H Deuel % (Auto) 10.2 H Eos % (Auto) 1.4 Baso % (Auto) 0.5 Neut # (Auto) 1.8 Lymph # (Auto) 4.1 Deuel # (Auto) 0.7 Eos # (Auto) 0.1 Baso # (Auto) 0.0 Sodium 144 Potassium 3.8 Chloride 109 H Carbon Dioxide 22 Anion Gap 18 BUN 14 Creatinine 0.8 Est GFR ( Amer) > 60 Est GFR (Non-Af Amer) > 60 POC Glucose (mg/dL) Random Glucose 87 Calcium 9.2 Total Bilirubin 0.4 AST 32 ALT 14 Alkaline Phosphatase 79 Total Creatine Kinase 87 CK-MB (Mass) < 0.22 Troponin I < 0.0120 Total Protein 6.9 Albumin 3.7 Globulin 3.2 Albumin/Globulin Ratio 1.2 - EKG Data EKG Interpreted by: Myself EKG shows normal: Sinus rhythm Assessment & Plan - Assessment and Plan (Free Text) Assessment: 1. CP : - atypical, non cardiac - EKG: NSR, no ischemic changes - CXR: Normal CXRAY - UT ruled out - currently CP free, no volume overload. 2. HTN: controlled and stable on RX P L A N -There are no high risk features to suggest CHF or ACS as cause. Given CAD risk factors- outpatient re-eval and consideration for echo and stress testing will be done. Ok to d/c with outpatient f/u with us. - meds reviewed: addition of statin for CVD risk reduction suggested. continue with: Amlodipine Besylate (Norvasc) 5 mg PO PCS [facility] Aspirin (Aspirin Chewable) 81 mg PO DAILY [facility] Hydrochlorothiazide (Microzide) 12.5 mg PO DAILY [facility] Losartan Potassium (Cozaar) 100 mg PO DAILY [facility] Metformin HCl (Glucophage) 500 mg PO ACD ON LICENSE OF [facility] - Date & Time Date: 07/21/17 Time: 10:45
[2017-07-21 12:48] VITALS: PULSE 85
--- NOTE | 2017-07-21 15:01 | CP.PCM.PN ---
Subjective - Date & Time of Evaluation Date of Evaluation: 07/21/17 Time of Evaluation: 13:40 - Subjective Subjective: Patient seen today , denies any chest pain, sob, palpitations, dizziness No overnight events recorded on monitor troponin x 3 - negative Objective - Vital Signs/Intake and Output Vital Signs (last 24 hours): Temp Pulse Resp BP Pulse Ox 97.5 F L 85 16 132/70 98 07/21/17 07:00 07/21/17 12:00 07/21/17 09:38 07/21/17 09:38 07/21/17 07:00 - Medications Medications: Current Medications Amlodipine Besylate (Norvasc) 5 mg PO PCS [facility] Aspirin (Aspirin Chewable) 81 mg PO DAILY [facility] Last Admin: 07/21/17 09:40 Dose: 81 mg Enoxaparin Sodium (Lovenox) 40 mg SC DAILY [facility] Last Admin: 07/21/17 09:43 Dose: 40 mg Hydrochlorothiazide (Microzide) 12.5 mg PO DAILY [facility] Last Admin: 07/21/17 09:40 Dose: 12.5 mg Insulin Aspart (Novolog) 0 unit SC ACHS [facility] PRN Reason: Protocol Last Admin: 07/21/17 11:27 Dose: Not Given Losartan Potassium (Cozaar) 100 mg PO DAILY [facility] Last Admin: 07/21/17 09:40 Dose: 100 mg Metformin HCl (Glucophage) 500 mg PO ACD [facility] - Labs Labs: 07/21/17 06:47 07/21/17 06:47 Assessment and Plan - Assessment and Plan (Free Text) Assessment: A/P 61yo female, with pmhx of hypertension, diabetes and high cholesterol, admitted with midsternal chest pain troponin x 3 - negative seen by Dr. Tom today, can be discharged home today, if cleared by cardiology D/w Dr. Goodman, stable for discharge home today and f/u with [facility] tomorrow at 1 pm Discharge plan discussed with patient who understands and agrees with plan
--- NOTE | 2017-07-21 15:26 | CARD ---
APPROVED REPORT EKG Measurement Heart [id number] <Conclusion> Sinus bradycardia Poor R wave progression V1 - V3. Appears to be positional. Borderline EKG
--- NOTE | 2017-07-21 18:54 | CARD ---
APPROVED REPORT EKG Measurement Heart [id number] <Conclusion> Normal sinus rhythm Low voltage QRS Cannot rule out Anterior infarct, age undetermined Abnormal ECG
== END 2017-07-21 15:57 | disposition home or self-care (01) ==
LOC: C.ER 17:54 → C.9E 19:51 → C.6T 20:16
PROVIDERS: ADMIT Internal Medicine; ATTEND Internal Medicine
DX: R07.89 Other chest pain (principal); E03.9 Hypothyroidism, unspecified; E11.9 Type 2 diabetes mellitus without complications; E78.00 Pure hypercholesterolemia, unspecified; I10 Essential (primary) hypertension; K21.9 Gastro-esophageal reflux disease without esophagitis; Z91.14 Patient's other noncompliance with medication regimen; Z87.442 Personal history of urinary calculi; Z79.4 Long term (current) use of insulin
CPT/HCPCS: 36415; 71045; 80053; 82948; 84484; 85025; 93005; 99285; G0378; J1650

== ENCOUNTER 2018-04-17 04:07 | Emergency (ER) | payer BC, MEDICARE ==
--- NOTE | 2018-04-17 05:00 | C.PDOC ---
History Of Present Illness 62 year old female with PMHx of HTN, HLD and DM presents to the ED c/o pain under her right breast tonight that started after turning while sleeping in bed. Patient states she felt the urge to move her bowels which she did, patient states pain did not subside and started radiating to her epigastric area. Patient reports her was leaving for work and patient did not feel save being alone at home with her pain. Patient states her pain now resolved and is asymptomatic. Patient denies fever, chills, rash, headache, visual changes, SOB, palpitations, weakness, numbness. Time Seen by Provider: 04/17/18 04:31 Chief Complaint (Nursing): Chest Pain History Per: Patient History/Exam Limitations: no limitations Onset/Duration Of Symptoms: Hrs Current Symptoms Are (Timing): Still Present Quality: "Pain" Exacerbating Factors: Turning Recent travel outside of the [place]: No Additional History Per: Patient Past Medical History Reviewed: Historical Data, Nursing Documentation, Vital Signs Vital Signs: Last Vital Signs Temp 98.0 F 04/17/18 04:21 Pulse 97 H 04/17/18 04:21 Resp 16 04/17/18 04:21 BP 154/77 H 04/17/18 04:21 Pulse Ox 98 04/17/18 04:21 - Medical History PMH: Diabetes (Non-compliant with medication), HTN, Hypercholesterolemia, Kidney Stones Denies: Chronic Kidney Disease Surgical History: No Surg Hx - [facility] Procedures FLUOROSCOPY OF LEFT HEART USING LOW OSMOLAR CONTRAST (02/02/15) FLUOROSCOPY OF SINGLE CORONARY ARTERY USING L OSM CONTRAST (02/02/15) INSERT INDWELLING CATH (09/12/12) MEASURE OF CARDIAC SAMPL & PRESSURE, L HEART, PERC APPROACH (02/02/15) Family History: States: Unknown Family Hx - Social History Hx Tobacco Use: No Hx Alcohol Use: No Hx Substance Use: No - Immunization History Hx Tetanus Toxoid Vaccination: No Hx Influenza Vaccination: No Hx Pneumococcal Vaccination: No Review Of Systems Constitutional: Negative for: Fever, Chills Eyes: Negative for: Vision Change Cardiovascular: Positive for: Chest Pain. Negative for: Palpitations Respiratory: Negative for: Cough, Shortness of Breath Gastrointestinal: Positive for: Abdominal Pain. Negative for: Nausea, Vomiting, Diarrhea Skin: Negative for: Rash Neurological: Negative for: Weakness, Numbness, Headache, Dizziness Physical Exam - Physical Exam Appears: Non-toxic, No Acute Distress, Other (obese) Skin: Normal Color, Warm, Dry Head: Atraumatic, Normacephalic Eye(s): bilateral: Normal Inspection, PERRL, EOMI Oral Mucosa: Moist Neck: Normal ROM, Supple Chest: Symmetrical, No Tenderness, Other (no breast tenderness) Cardiovascular: Rhythm Regular Respiratory: Normal Breath Sounds, No Rales, No Rhonchi, No Wheezing Gastrointestinal/Abdominal: Soft, No Tenderness, No Guarding, No Rebound Extremity: Normal ROM, No Tenderness, No Swelling Neurological/Psych: Oriented x3, Normal Speech, Normal Cognition Gait: Steady ED Course And Treatment ECG: Interpreted By Me, Viewed By Me ECG Rhythm: Sinus Rhythm Interpretation Of ECG: No ST/T wave changes Rate From EC (BPM) O2 Sat by Pulse Oximetry: 98 (ON RA) Pulse Ox Interpretation: Normal Progress Note: Plan: - Labs. - CXR. - EKG Disposition - Disposition Forms: [employer] ([place]) - PA / REPROGRAPHICS ASSOCIATE / Resident Statement MD/DO has reviewed & agrees with the documentation as recorded. - Scribe Statement The provider has reviewed the documentation as recorded by the Scribe Mirza Horne All medical record entries made by the Scribe were at my direction and personally dictated by me. I have reviewed the chart and agree that the record accurately reflects my personal performance of the history, physical exam, medical decision making, and the department course for this patient. I have also personally directed, reviewed, and agree with the discharge instructions and disposition.
[2018-04-17 05:22] LABS: INR 0.9; PROTHROMBIN TIME 10.1 SECONDS (9.7-12.2)
[2018-04-17 05:24] LABS: ALB/GLOB RATIO 1.4 (1.0-2.1); ALBUMIN 4.6 g/dL (3.5-5.0); BLOOD UREA NITROGEN 12 mg/dL (7-17); CALCIUM 9.6 mg/dl (8.6-10.4); GFR NON-AFRICAN AMERICAN > 60
[2018-04-17 05:36] LABS: BASO # 0.1 K/uL (0.0-0.2); EOS # 0.1 K/uL (0.0-0.7); EOS % 1.6 % (0.0-4.0); HEMOGLOBIN 12.9 g/dL (11.0-16.0); LYMPH # 3.6 K/uL (1.0-4.3); LYMPH % 50.8 % (20.0-40.0); MEAN CELL VOLUME 89.3 fL (81.0-99.0); MEAN CORPUSCULAR HEMOGLOBIN 29.1 pg (27.0-31.0); MEAN CORPUSCULAR HGB CONC 32.6 g/dL (33.0-37.0); MONO # 0.7 K/uL (0.0-0.8); MONO % 10.6 % (0.0-10.0); NEUT # 2.5 K/uL (1.8-7.0); NRBC % 0.1 % (0.0-2.0); RBC 4.44 Mil/uL (3.80-5.20); RED CELL DISTRIBUTION WIDTH 13.9 % (11.5-14.5)
[2018-04-17 05:43] LABS: ALT/SGPT 8 U/L (9-52); AST/SGOT 22 U/L (14-36)
--- NOTE | 2018-04-17 08:43 | RAD ---
Chest x-ray single frontal view HISTORY: Right-sided chest pain. COMPARISON: 02/01/2015 Findings: Mild venous congestion. Mild patchy increased markings in the medial right lower lung zone. Biapical pleural thickening. Heart size within normal limits. Degenerative changes in the spine. Impression: Mild venous congestion. Mild patchy increased markings in the medial right lower lung zone. Biapical pleural thickening.
[2018-04-17 09:24] VITALS: BP 136/74; PULSE 80; RESP 18; TEMP 98.5; O2SAT 96
--- NOTE | 2018-04-19 20:04 | CARD ---
APPROVED REPORT Date of service: 04/17/2018 EKG Measurement Heart [id number] <Conclusion> Normal sinus rhythm Poor R wave progression Nonspecific T wave changes Abnormal ECG
== END 2018-04-17 10:47 | disposition left against medical advice (07) ==
LOC: C.ER 04:07 → UNDOADMOB 06:31 → C.9E 06:31 → UNDODISOB 10:00
DX: R07.89 Other chest pain (principal); I10 Essential (primary) hypertension; E11.9 Type 2 diabetes mellitus without complications; E78.2 Mixed hyperlipidemia; Z87.442 Personal history of urinary calculi; Z91.14 Patient's other noncompliance with medication regimen
CPT/HCPCS: 71046; 80053; 84484; 85025; 85610; 85730; 99284; G0378